=== PATIENT | male | born 1940 | race Caucasian/White ===

== ENCOUNTER 2022-01-21 06:55 | Day surgery (SDC) | payer OTHER, MEDICAID ==
[2022-01-19 11:28] LABS: COVID AG,FIA SOURCE NASAL SWAB
[~2022-01-21] VITALS: Ht 177.8 cm; Wt 90.9 kg
[~2022-01-21 06:55] MED LIST: CHLORHEXIDINE GLUCONATE 4% 118 ML TOPICAL LIQUID TP ONE; RINGERS SOLUTION,LACTATED 500 ML IV ONE
[2022-01-21] MEDS ORDERED: LIDOCAINE/PF 1% 2 ML VIAL IM ONE (06:56)
[2022-01-21] MEDS ORDERED: CHONDR SULF A SOD/HYALURONATE 1.05 ML KIT IO ONE (06:56)
[2022-01-21] MEDS ORDERED: EPINEPHrine 1:1,000 [1 MG/ML] VIAL IM ONE (06:56)
[2022-01-21] MEDS ORDERED: MIDAZOLAM HCL 2 MG/2 ML VIAL IVP ONE (06:56)
[2022-01-21] MEDS ORDERED: FentaNYL CITRATE PF 100 MCG/2 ML VIAL IVP ONE (06:56)
[2022-01-21] MEDS ORDERED: BALANCED SALT 15 ML OPHTHALMIC IRRIG.SOLN OU ONE (06:56)
[2022-01-21] MEDS: MOXIFLOXACIN HCL 0.5% 3 ML OPHTHALMIC SOLUTION OS SCH ×3 (07:40→07:58)
[2022-01-21] MEDS: KETOROLAC TROMETHAMINE 0.5% 5 ML OPHTHALMIC SOLUTION OS SCH ×3 (07:40→07:58)
[2022-01-21] MEDS: TROPICAMIDE 1% 2 ML OPHTHALMIC SOLUTION OS SCH ×3 (07:40→07:58)
[2022-01-21] MEDS: PHENYLEPHRINE HCL 2.5% 2 ML OPHTHALMIC SOLUTION OS SCH ×3 (07:40→07:58)
[2022-01-21] MEDS ORDERED: AMLO1TAB33 PO (08:51)
[2022-01-21] MEDS ORDERED: APIX2.5T PO (08:51)
[2022-01-21] MEDS ORDERED: FURO40 PO (08:51)
[2022-01-21] MEDS ORDERED: ATOR40TA28 PO (08:51)
[2022-01-21] MEDS ORDERED: FINA-27 PO (08:51)
[2022-01-21] MEDS ORDERED: FLEC50 PO (08:51)
[2022-01-21] MEDS ORDERED: BICA50TA47 PO (08:51)
[2022-01-21] MEDS ORDERED: LOSA-381 PO (08:52)
== END 2022-01-21 10:35 | disposition home or self-care (01) ==
LOC: SURGERY 06:55
PROVIDERS: ATTEND Ophthalmology
DX: H25.12 Age-related nuclear cataract, left eye (principal); J44.9 Chronic obstructive pulmonary disease, unspecified; I10 Essential (primary) hypertension; M16.10 Unilateral primary osteoarthritis, unspecified hip; Z98.890 Other specified postprocedural states; Z91.013 Allergy to seafood; Z91.041 Radiographic dye allergy status; Z90.5 Acquired absence of kidney; Z79.899 Other long term (current) drug therapy; Z95.0 Presence of cardiac pacemaker
CPT/HCPCS: 66984; 87426; 93005; C9803; J0171; J2250; J3010; J3490; J7120; Q9967; V2632

== ENCOUNTER 2022-02-18 07:05 | Day surgery (SDC) | payer OTHER, MEDICAID ==
[2022-02-16 13:07] LABS: COVID AG,FIA SOURCE NASOPHARYNGEAL
[~2022-02-18] VITALS: Ht 177.8 cm; Wt 90.9 kg
[~2022-02-18 07:05] MED LIST changes: +AMLO-257 PO; +APIX2.5T PO; +ATOR40TA28 PO; +BICA50TA47 PO; -CHLORHEXIDINE GLUCONATE 4% 118 ML TOPICAL LIQUID TP ONE; +FINA-27 PO; +FLEC50 PO; +FURO40 PO; +LOSA-381 PO; -RINGERS SOLUTION,LACTATED 500 ML IV ONE
[2022-02-18] MEDS ORDERED: BALANCED SALT 15 ML OPHTHALMIC IRRIG.SOLN OU ONE (07:06)
[2022-02-18] MEDS ORDERED: POVIDONE-IODINE 10% 15 ML SOLUTION UD TP ONE (07:06)
[2022-02-18] MEDS ORDERED: FentaNYL CITRATE PF 100 MCG/2 ML VIAL IVP ONE (07:06)
[2022-02-18] MEDS ORDERED: CHONDR SULF A SOD/HYALURONATE 1.05 ML KIT IO ONE (07:06)
[2022-02-18] MEDS ORDERED: MIDAZOLAM HCL 2 MG/2 ML VIAL IVP ONE (07:06)
[2022-02-18] MEDS ORDERED: LIDOCAINE/PF 1% 2 ML VIAL IM ONE (07:06)
[2022-02-18] MEDS ORDERED: TETRACAINE HCL/PF 0.5% 4 ML OPHTHALMIC SOLUTION OU ONE (07:06)
[2022-02-18] MEDS ORDERED: EPINEPHrine 1:1,000 [1 MG/ML] VIAL IM ONE (07:06)
[2022-02-18] MEDS ORDERED: KETOROLAC TROMETHAMINE 0.5% 5 ML OPHTHALMIC SOLUTION ONE (07:23)
[2022-02-18] MEDS ORDERED: MOXIFLOXACIN HCL 0.5% 3 ML OPHTHALMIC SOLUTION ONE (07:23)
[2022-02-18] MEDS ORDERED: TROPICAMIDE 1% 2 ML OPHTHALMIC SOLUTION ONE (07:23)
[2022-02-18] MEDS ORDERED: PHENYLEPHRINE HCL 2.5% 2 ML OPHTHALMIC SOLUTION ONE (07:23)
[2022-02-18] MEDS ORDERED: RINGERS SOLUTION,LACTATED 500 ML IV ONE (07:30)
[2022-02-18] MEDS: PHENYLEPHRINE HCL 2.5% 2 ML OPHTHALMIC SOLUTION OD SCH ×3 (07:46→08:03)
[2022-02-18] MEDS: TROPICAMIDE 1% 2 ML OPHTHALMIC SOLUTION OD SCH ×3 (07:46→08:03)
[2022-02-18] MEDS: MOXIFLOXACIN HCL 0.5% 3 ML OPHTHALMIC SOLUTION OD SCH ×3 (07:46→08:04)
[2022-02-18] MEDS: KETOROLAC TROMETHAMINE 0.5% 5 ML OPHTHALMIC SOLUTION OD SCH ×3 (07:46→08:04)
== END 2022-02-18 10:10 | disposition home or self-care (01) ==
LOC: SURGERY 07:05
PROVIDERS: ATTEND Ophthalmology
DX: H25.11 Age-related nuclear cataract, right eye (principal); E78.00 Pure hypercholesterolemia, unspecified; I50.9 Heart failure, unspecified; G47.33 Obstructive sleep apnea (adult) (pediatric); I11.0 Hypertensive heart disease with heart failure; Z91.041 Radiographic dye allergy status; Z79.899 Other long term (current) drug therapy; Z91.013 Allergy to seafood; Z98.890 Other specified postprocedural states
CPT/HCPCS: 66984; 87426; C9803; J0171; J2250; J3010; J3490; Q9967; V2632